=== PATIENT | male | born 1995 | race American Indian/Alaskan Native ===

== ENCOUNTER 2018-05-01 21:02 | Emergency (ER) | payer SELFPAY ==
[2018-05-01 21:43] LABS: Basophils # (Auto) 0.1 K/mm3 (0.0-0.1); Basophils % (Auto) 0.8 % (0.0-1.8); Eosinophils # (Auto) 0.1 K/mm3 (0.0-0.4); Eosinophils % (Auto) 1.8 % (0.0-4.3); Hematocrit 43.2 % (35.5-45.6); Hemoglobin 14.4 gm/dl (11.8-15.2); Lymphocytes # (Auto) 1.9 K/mm3 (1.2-5.4); Mean Corpuscular HGB Conc 33 % (32-34); Mean Corpuscular Volume 93 fl (84-94); Monocytes # (Auto) 0.9 K/mm3 (0.0-0.8); Monocytes % (Auto) 11.5 % (0.0-7.3); Platelet Count 269 K/mm3 (140-440); Red Blood Count 4.66 M/mm3 (3.65-5.03)
[2018-05-01 21:56] LABS: BUN/Creatinine Ratio 14; Blood Urea Nitrogen 10 mg/dL (9-20); Calcium 9.3 mg/dL (8.4-10.2); Hemolysis Index 18
[2018-05-01 22:01] LABS: Amphetamine Screen,Urine PRESUMPTIVE NEGATIVE; Benzodiazepines Screen,Urine PRESUMPTIVE NEGATIVE; Cocaine Screen,Urine PRESUMPTIVE NEGATIVE; Methadone Screen,Urine PRESUMPTIVE NEGATIVE; Opiate Screen,Urine PRESUMPTIVE NEGATIVE
--- NOTE | 2018-05-01 22:10 | Emergency Department Report ---
ED Psych HPI - General Chief Complaint: Psych Stated Complaint: BIPOLAR Time Seen by Provider: 05/01/18 21:37 Source: patient, EMS Mode of arrival: Ambulatory - History of Present Illness Initial Comments: 22-year-old male with a past medical history schizophrenia and bipolar disorder presents to the Hospital complaining of auditory hallucinations and needing his psychiatric medication. Patient is having command hallucinations with homicidal ideation. Denies suicidal ideation. He denies any physical complaints. Patient was recently here on April 24 and was transferred to [facility]. Patient was discharged with a prescription for meds. Patient states he does not have insurance and could not afford medication. He admits to continue marijuana use. Patient also does not have a place to live. - Related Data Home Medications Medication Instructions Recorded Confirmed Last Taken No Known Home Medications [No 04/12/18 04/24/18 Unknown Reported Home Medications] Allergies Allergy/AdvReac Type Severity Reaction Status Date / Time No Known Allergies Allergy Verified 04/11/18 21:03 ED Review of Systems ROS: Stated complaint: BIPOLAR Other details as noted in HPI Comment: All other systems reviewed and negative ED Past Medical Hx - Past Medical History Previous Medical History?: Yes Hx Psychiatric Treatment: Yes (Schizo and bipolar) Additional medical history: Schizophrenia, bi polar - Surgical History Past Surgical History?: No - Social History Smoking Status: Never Smoker Substance Use Type: Marijuana - Medications Home Medications: Home Medications Medication Instructions Recorded Confirmed Last Taken Type No Known Home Medications [No 04/12/18 04/24/18 Unknown History Reported Home Medications] ED Physical Exam - General Limitations: No Limitations - Other Other exam information: General: No limitations, patient is alert in no acute distress Head exam: Atraumatic, normocephalic Eyes exam: Normal appearance, pupils equal reactive to light, extraocular movements intact ENT: Moist mucous membrane, normal oropharynx Neck exam: Normal inspection, full range of motion, no meningismus nontender Respiratory exam: Clear to auscultation bilateral, no wheezes, rales, crackles Cardiovascular: Normal rate and rhythm, normal heart sounds Abdomen: Soft, nondistended, and nontender, with normal bowel sounds, no rebound, or guarding Extremity: Full range of motion normal inspection no deformity Back: Normal Inspection, full range of motion, no tenderness Neurologic: Alert, oriented x3, cranial nerves intact, no motor or sensory deficit Psychiatric: Laughing inappropriately. Cooperative, flirtatious Skin: Warm, dry, intact ED Course Vital Signs 05/01/18 21:21 Temperature 98.4 F Pulse Rate 82 Respiratory 16 Rate Blood Pressure 120/75 O2 Sat by Pulse 100 Oximetry ED Medical Decision Making - Lab Data Result diagrams: 05/01/18 21:30 05/01/18 21:30 Lab Results 05/01/18 05/01/18 05/01/18 Range/Units 21:30 21:30 21:30 WBC 8.1 (4.5-11.0) K/mm3 RBC 4.66 (3.65-5.03) M/mm3 Hgb 14.4 (11.8-15.2) gm/dl Hct 43.2 (35.5-45.6) % MCV 93 (84-94) fl MCH 31 (28-32) pg MCHC 33 (32-34) % RDW 14.0 (13.2-15.2) % Plt Count 269 (140-440) K/mm3 Lymph % (Auto) 23.0 (13.4-35.0) % [place] % (Auto) 11.5 H (0.0-7.3) % Eos % (Auto) 1.8 (0.0-4.3) % Baso % (Auto) 0.8 (0.0-1.8) % Lymph # 1.9 (1.2-5.4) K/mm3 [place] # 0.9 H (0.0-0.8) K/mm3 Eos # 0.1 (0.0-0.4) K/mm3 Baso # 0.1 (0.0-0.1) K/mm3 Seg Neutrophils % 62.9 (40.0-70.0) % Seg Neutrophils # 5.1 (1.8-7.7) K/mm3 Sodium 140 (137-145) mmol/L Potassium 3.6 (3.6-5.0) mmol/L Chloride 103.3 (98-107) mmol/L Carbon Dioxide 24 (22-30) mmol/L Anion Gap 16 mmol/L BUN 10 (9-20) mg/dL Creatinine 0.7 L (0.8-1.5) mg/dL Estimated GFR > 60 ml/min BUN/Creatinine Ratio 14 % Glucose 117 H (75-100) mg/dL Calcium 9.3 (8.4-10.2) mg/dL Urine Bilirubin (Negative) Urine RBC (Auto) (0.0-6.0) /HPF U Epithel Cells (Auto) (0-13.0) /HPF Urine Opiates Screen Urine Methadone Screen Ur Barbiturates Screen Ur Phencyclidine Scrn Ur Amphetamines Screen U Benzodiazepines Scrn Urine Cocaine Screen Plasma/Serum Alcohol < 0.01 (0-0.07) % 05/01/18 05/01/18 Range/Units 21:43 21:43 WBC (4.5-11.0) K/mm3 RBC (3.65-5.03) M/mm3 Hgb (11.8-15.2) gm/dl Hct (35.5-45.6) % MCV (84-94) fl MCH (28-32) pg MCHC (32-34) % RDW (13.2-15.2) % Plt Count (140-440) K/mm3 Lymph % (Auto) (13.4-35.0) % [place] % (Auto) (0.0-7.3) % Eos % (Auto) (0.0-4.3) % Baso % (Auto) (0.0-1.8) % Lymph # (1.2-5.4) K/mm3 [place] # (0.0-0.8) K/mm3 Eos # (0.0-0.4) K/mm3 Baso # (0.0-0.1) K/mm3 Seg Neutrophils % (40.0-70.0) % Seg Neutrophils # (1.8-7.7) K/mm3 Sodium (137-145) mmol/L Potassium (3.6-5.0) mmol/L Chloride (98-107) mmol/L Carbon Dioxide (22-30) mmol/L Anion Gap mmol/L BUN (9-20) mg/dL Creatinine (0.8-1.5) mg/dL Estimated GFR ml/min BUN/Creatinine Ratio % Glucose (75-100) mg/dL Calcium (8.4-10.2) mg/dL Urine Bilirubin Neg (Negative) Urine RBC (Auto) 5.0 (0.0-6.0) /HPF U Epithel Cells (Auto) < 1.0 (0-13.0) /HPF Urine Opiates Screen Presumptive negative Urine Methadone Screen Presumptive negative Ur Barbiturates Screen Presumptive negative Ur Phencyclidine Scrn Presumptive negative Ur Amphetamines Screen Presumptive negative U Benzodiazepines Scrn Presumptive negative Urine Cocaine Screen Presumptive negative Plasma/Serum Alcohol (0-0.07) % - Medical Decision Making 1013 and transfer form signed. Patient received Rocephin and azithromycin for elevated WBC count and a urine for possible urethritis. Patient awaiting acceptance to psychiatric hospital - Differential Diagnosis psychosis, malingering, noncompliance, drug abuse, homeless Critical Care Time: No Critical care attestation.: If time is entered above; I have spent that time in minutes in the direct care of this critically ill patient, excluding procedure time. ED Disposition Clinical Impression: Schizophrenia, Homicidal ideation, Noncompliance with medication regimen, Urethritis, Medical clearance for psychiatric admission, Marijuana use Disposition: [id number]/[id number] PSY HOSP/PSY UNIT Is pt being admited?: No Condition: Stable Referrals: PRIMARY CARE [Primary Care Provider] - 3-5 Days Forms: STI Treatment and Prevention Time of Disposition: 06:14
[2018-05-01 22:12] LABS: Bilirubin,Urine NEG (Negative); Blood,Urine NEG (Negative); Color,Urine Yellow (Yellow); Mucus,Urine 2+ /HPF; Protein,Urine <15 mg/dL mg/dL (Negative)
[2018-05-01 22:20] LABS: Cannabinoid Screen,Urine PRESUMPTIVE POSITIVE
[2018-05-02] MEDS ORDERED: ZITHROMAX PO ONE (06:08)
[2018-05-02] MEDS ORDERED: XYLOCAINE 1% MPF 5 mL INFILTRATI ONE (06:08)
[2018-05-02] MEDS ORDERED: ROCEPHIN IM ONE (06:08)
[2018-05-02] MEDS ORDERED: GEODON IM ONE ×3 (10:28→10:31)
[2018-05-02] MEDS ORDERED: WATER FOR INJ (PF) ONE (10:32)
--- NOTE | 2018-05-02 11:36 | Event Note ---
Date: 05/02/18 Patient became very aggressive towards staff and had to be given Geodon for sedation. I have done a [id number] with this patient and he is now calm and sleeping in the room.
--- NOTE | 2018-05-02 12:08 | Consultation ---
History of Present Illness - Reason for Consult Consult date: 05/02/18 Reason for consult: Mental Health Evaluation Requesting physician: DANG FREIRE - Chief Complaint Chief complaint: "I may shoot somebody" - History of Present Psychiatric Illness 22-year-old AA male who presented to the ER for AH's and asking for medications. The patient is known to me. Today the patient is evasive during the assessment. He would not answer some questions asked of him. He stated that he need his medication because he felt like he may "shot someone, possibly." He would not ID the person or people he may shot. The patient is known to be vague during the interview. He denies SI's, but would not confirm or deny HI's. He denies AVH's. The patient home medications are Risperdal and Depakote. Medications and Allergies Allergies Allergy/AdvReac Type Severity Reaction Status Date / Time No Known Allergies Allergy Verified 04/11/18 21:03 Home Medications Medication Instructions Recorded Confirmed Last Taken Type No Known Home Medications [No 04/12/18 05/02/18 Unknown History Reported Home Medications] Past psychiatric history - Past Medical History Past Medical History: No medical history Past Surgical History: No surgical history - past Psychiatric treatment and history psychiatric treatment history: Several inpatient psy settings. Denies a fam psy hx. - Social History Social history: other (Reside at a detention per the patient) Mental Status Exam - Vital signs Last Vital Signs Temp 98.2 F 05/02/18 01:21 Pulse 89 05/02/18 01:21 Resp 18 05/02/18 01:21 BP 136/88 05/02/18 01:21 Pulse Ox 100 05/01/18 21:21 - Exam Narrative exam: MSE: Appearance: calm Behavior: regular eye contact Speech: regular rate and tone Mood: evasive Affect: congruent to mood Thought Process: circumstantial Thought Content: denies SI and AVH's Motor Activity: sitting up in bed Cognition: A/O x 3 Insight: variable Judgment: variable Results Result Diagrams: 05/01/18 21:30 05/01/18 21:30 Abnormal lab results 05/01/18 05/01/18 05/01/18 Range/Units 21:30 21:30 21:30 [place] % (Auto) (0.0-7.3) % [place] # (0.0-0.8) K/mm3 Creatinine 0.7 L (0.8-1.5) mg/dL Glucose 117 H (75-100) mg/dL Ur Specific [place] (1.003-1.030) Urine WBC (Auto) (0.0-6.0) /HPF Salicylates < 0.3 L (2.8-20.0) mg/dL Acetaminophen < 5.0 L (10.0-30.0) ug/mL 05/01/18 05/01/18 Range/Units 21:30 21:43 [place] % (Auto) 11.5 H (0.0-7.3) % [place] # 0.9 H (0.0-0.8) K/mm3 Creatinine (0.8-1.5) mg/dL Glucose (75-100) mg/dL Ur Specific [place] 1.033 H (1.003-1.030) Urine WBC (Auto) 20.0 H (0.0-6.0) /HPF Salicylates (2.8-20.0) mg/dL Acetaminophen (10.0-30.0) ug/mL All other labs normal. Assessment and Plan Assessment and plan: Impression: Unspecified Mood DO. Cannabis Use DO. Today the patient is evasive during the assessment. The patient would not confirm or deny HI's. Lipase is slightly elevated, so Depakote will not be initiated. DDx: Bipolar DO, R/O Substance Induced Mood DO Recommendation/Plan: Continue 1013 and start home medication Risperdal 1 mg PO HS for mood. Discussed possible metabolic side effects of Risperdal with the patient. Dispo: The patient was referred to inpatient psy services. Staffed with Dr Mily Bhagat.
[2018-05-02 12:58] LABS: Alanine Aminotransferase 10 units/L (7-56)
[2018-05-02] MEDS ORDERED: RisperDAL PO SCH (22:00)
--- NOTE | 2018-05-03 14:01 | Progress Note ---
Subjective - Reason for Consult Consult date: 05/03/18 Reason for consult: Psychiatric Follow-up Evaluation - Chief Complaint Chief complaint: "I feel alright" Patient is a 22-year-old AA male who presented to the ER for AH's and asking for medications. The patient is known to me. Today the patient is anxious and evasive during the assessment. He would not answer some questions asked of him. Patient laughing inappropriate during the assessment. He states " the voices are sending me threats." Patient reports appropriate sleep/appetite. He denies SI's. Patient has to be redirected several times to stay on topic. Mental Status Exam - Vital signs Last Vital Signs Temp 98.3 F 05/03/18 08:00 Pulse 105 H 05/03/18 08:00 Resp 18 05/03/18 08:00 BP 110/73 05/03/18 08:00 Pulse Ox 98 05/03/18 08:00 - Exam Narrative exam: Mental Status Exam Appearance: calm Behavior: regular eye contact; evasive/guarded Speech: regular rate and tone Mood: " I'm alright" Affect: congruent to mood Thought Process: circumstantial Thought Content: denies SI's ; Appears internally preoccupied/paranoid Motor Activity: ambulatory Cognition: A/O x 3 Insight: variable Judgment: variable Assessment and Plan Impression: Unspecified Mood DO. Cannabis Use DO. Today the patient is evasive/guarded and anxious during the assessment. The patient would not confirm or deny HI's. Lipase is slightly elevated, so Depakote will not be initiated. DDx: Bipolar DO, R/O Substance Induced Mood DO Recommendation/Plan: 1. Continue 1013. 2. Continue Risperdal 2 mg PO HS for mood. Discussed possible metabolic side effects of Risperdal with the patient. Disposition: The patient was referred to inpatient psychiatric services. Staffed with Dr. Mily Bhagat.
[2018-05-03] MEDS: RisperDAL PO SCH (21:53)
--- NOTE | 2018-05-04 13:35 | Progress Note ---
Subjective - Reason for Consult Consult date: 05/04/18 Reason for consult: Psychiatric Follow-up Evaluation - Chief Complaint Chief complaint: "I'm feeling great" Patient is a 22-year-old AA male who presented to the ER for AH's and asking for medications. Today the patient is cooperative but anxious during the assessment. Patient was able to answer questions more appropriately but still not appropriate. He reports appropriate sleep and appetite. Patient continues to have poor insight/judgment. He denies SI/HI's, A/VH's, and delusions. Although he denies, patient appears internally preoccupied and paranoid -less. Mental Status Exam - Vital signs Last Vital Signs Temp 98.3 F 05/04/18 09:46 Pulse 68 05/04/18 09:46 Resp 14 05/04/18 09:46 BP 117/77 05/04/18 09:46 Pulse Ox 100 05/04/18 09:46 - Exam Narrative exam: Mental Status Exam Appearance: hospital gown, anxious Behavior: regular eye contact Speech: regular rate and tone Mood: " I'm doing great" Affect: congruent to mood Thought Process: circumstantial, tangential Thought Content: denies SI/HI's; appears internally preoccupied/delusional Motor Activity: ambulatory Cognition: A/O x 3 Insight: variable Judgment: variable Assessment and Plan Impression: Unspecified Mood DO. Cannabis Use DO. Today the patient is cooperative but anxious during the assessment. The patient denies SI/HI's. Behavior and thought process still inappropriate. Lipase is slightly elevated, so Depakote will not be initiated. DDx: Bipolar DO, R/O Substance Induced Mood DO Recommendation/Plan: 1. Continue 1013. 2. On 05-03-18 patient Risperdal was increased to 2mg po QHS. Will continue Risperdal 2 mg PO HS for mood. Discussed possible metabolic side effects of Risperdal with the patient. Disposition: The patient was referred to inpatient psychiatric services. Staffed with Dr. Mily Bhagat.
[2018-05-04] MEDS: RisperDAL PO SCH (22:11)
[2018-05-05 08:18] VITALS: BP 129/67
--- NOTE | 2018-05-05 09:48 | Progress Note ---
Subjective - Reason for Consult Consult date: 05/05/18 Reason for consult: Psychiatry Follow-up - Chief Complaint Chief complaint: "I will stay off the drugs" Patient is a 22-year-old AA male who presented to the ER for AH's and asking for medications. Today the patient is calm and cooperative during the assessment. He stated that he was upset when he came to ER. He apologize for his actions during his stay in the ER. He stated that he reside at [facility] ([facility] He denies SI/HI's and AVH's. He denies any side effects of his medication. Mental Status Exam - Vital signs Last Vital Signs Temp 98.3 F 05/05/18 08:17 Pulse 62 05/05/18 08:17 Resp 16 05/05/18 08:18 BP 129/67 05/05/18 08:17 Pulse Ox 100 05/05/18 08:18 - Exam Narrative exam: MSE: Appearance: calm, cooperative Behavior: regular eye contact Speech: regular rate and tone Mood: "better" Affect: congruent to mood Thought Process: logical Thought Content: denies SI/HI's and AVH's Motor Activity: sitting up in bed Cognition: A/O x 3 Insight: fair Judgment: fair Assessment and Plan Impression: Unspecified Mood DO. Cannabis Use DO. Today the patient is calm and cooperative during the assessment. The patient is no threat to others. DDx: Bipolar DO, R/O Substance Induced Mood DO Recommendation/Plan: Rescind 1013 and continue Risperdal 2 mg PO HS for mood. Discussed possible metabolic side effects of Risperdal with the patient. Discussed the importance to abstain from recreational drug use. Dispo: The patient can follow up with [facility] for outpatient psy services. Will staff with Dr Silva.
--- NOTE | 2018-05-05 14:07 | Emergency Department Report ---
HPI - General Chief Complaint: Psych Time Seen by Provider: 05/01/18 21:37 - HPI HPI: Patient presented in the ED with auditory hallucination and homicide ideation. He tested positive for Marijuana in the ED. Today he is calm and he denies suicide or homicide ideation currently. He was seen earlier today by the psychiatric nurse practitioner Mr Solomon Walls who recommend discharging him on Risperdal and for him to follow up with the [facility] for outpatient psychiatric services. The resources has been given to him by the psychiatric nurse practitioner. On my re-evaluation, patient is calm and he denies homicide or suicide ideation. Plan: Will discharge him per recommendation of the psychiatric nurse practitioner. ED Past Medical Hx - Past Medical History Previous Medical History?: Yes Hx Psychiatric Treatment: Yes (Schizo and bipolar) Additional medical history: Schizophrenia, bi polar - Surgical History Past Surgical History?: No - Social History Smoking Status: Never Smoker Substance Use Type: Marijuana - Medications Home Medications: Home Medications Medication Instructions Recorded Confirmed Last Taken Type Cephalexin [Keflex] 500 mg PO TID #30 capsule 05/05/18 Unknown Rx risperiDONE [RisperDAL] 1 mg PO QHS #30 tablet 05/05/18 Unknown Rx ED Review of Systems ROS: Stated complaint: BIPOLAR Other details as noted in HPI Physical Exam - Physical Exam Vital Signs: Vital Signs 05/01/18 05/02/18 05/02/18 21:21 01:21 19:00 Temperature 98.4 F 98.2 F 99.2 F Pulse Rate 82 89 98 H Respiratory 16 18 18 Rate Blood Pressure 120/75 Blood Pressure 136/88 125/80 [Left] O2 Sat by Pulse 100 99 Oximetry 05/03/18 05/03/18 05/03/18 02:30 08:00 16:00 Temperature 99.4 F 98.3 F 98.5 F Pulse Rate 98 H 105 H 89 Respiratory 18 18 18 Rate Blood Pressure Blood Pressure 106/61 110/73 121/65 [Left] O2 Sat by Pulse 98 98 100 Oximetry 05/03/18 05/04/18 05/04/18 20:37 09:46 13:00 Temperature 98.2 F 98.3 F 98.5 F Pulse Rate 82 68 99 H Respiratory 20 14 14 Rate Blood Pressure Blood Pressure 118/63 117/77 128/58 [Left] O2 Sat by Pulse 96 100 100 Oximetry 05/04/18 05/05/18 05/05/18 19:30 02:19 08:17 Temperature 98.8 F 97.3 F L 98.3 F Pulse Rate 76 62 62 Respiratory 16 18 16 Rate Blood Pressure Blood Pressure 127/80 122/65 129/67 [Left] O2 Sat by Pulse 100 100 100 Oximetry 05/05/18 08:18 Temperature Pulse Rate Respiratory 16 Rate Blood Pressure Blood Pressure [Left] O2 Sat by Pulse 100 Oximetry ED Course Vital Signs 05/01/18 05/02/18 05/02/18 21:21 01:21 19:00 Temperature 98.4 F 98.2 F 99.2 F Pulse Rate 82 89 98 H Respiratory 16 18 18 Rate Blood Pressure 120/75 Blood Pressure 136/88 125/80 [Left] O2 Sat by Pulse 100 99 Oximetry 05/03/18 05/03/18 05/03/18 02:30 08:00 16:00 Temperature 99.4 F 98.3 F 98.5 F Pulse Rate 98 H 105 H 89 Respiratory 18 18 18 Rate Blood Pressure Blood Pressure 106/61 110/73 121/65 [Left] O2 Sat by Pulse 98 98 100 Oximetry 05/03/18 05/04/18 05/04/18 20:37 09:46 13:00 Temperature 98.2 F 98.3 F 98.5 F Pulse Rate 82 68 99 H Respiratory 20 14 14 Rate Blood Pressure Blood Pressure 118/63 117/77 128/58 [Left] O2 Sat by Pulse 96 100 100 Oximetry 05/04/18 05/05/18 05/05/18 19:30 02:19 08:17 Temperature 98.8 F 97.3 F L 98.3 F Pulse Rate 76 62 62 Respiratory 16 18 16 Rate Blood Pressure Blood Pressure 127/80 122/65 129/67 [Left] O2 Sat by Pulse 100 100 100 Oximetry 05/05/18 08:18 Temperature Pulse Rate Respiratory 16 Rate Blood Pressure Blood Pressure [Left] O2 Sat by Pulse 100 Oximetry ED Medical Decision Making - Lab Data Result diagrams: 05/01/18 21:30 05/01/18 21:30 Critical care attestation.: If time is entered above; I have spent that time in minutes in the direct care of this critically ill patient, excluding procedure time. ED Disposition Clinical Impression: Schizophrenia, Homicidal ideation, Noncompliance with medication regimen, Urethritis, Medical clearance for psychiatric admission, Marijuana use, H/O bipolar disorder, Marijuana abuse UTI (urinary tract infection) Qualifiers: Urinary tract infection type: acute cystitis Hematuria presence: without hematuria Qualified Code(s): N30.00 - Acute cystitis without hematuria Disposition: TO HOME OR SELFCARE Is pt being admited?: No Does the pt Need Aspirin: No Condition: Stable Instructions: Urinary Tract Infection in Men (ED) Additional Instructions: Please follow up at the [facility] for outpatient psychiatric services you have been referred to by the psychiatric nurse practitioner who saw you earlier today. Return to the ED if your condition worsens. Prescriptions: risperiDONE [RisperDAL] 1 mg PO QHS #30 tablet Cephalexin [Keflex] 500 mg PO TID #30 capsule Referrals: PRIMARY CARE, [Primary Care Provider] - 3-5 Days Forms: STI Treatment and Prevention Time of Disposition: 14:08
== END 2018-05-05 15:29 | disposition home or self-care (01) ==
LOC: ED 21:02 → EEVIPCON 21:02 → ED 05-05 15:29
DX: F20.9 Schizophrenia, unspecified (principal); N34.2 Other urethritis; F12.10 Cannabis abuse, uncomplicated; F39 Unspecified mood [affective] disorder; N30.00 Acute cystitis without hematuria
CPT/HCPCS: 36415; 80048; 80164; 80307; 81001; 82150; 83690; 84075; 84450; 84460; 85025; 96372; 99284; G0480; J0696; J3486; 80320

== ENCOUNTER 2018-07-10 22:26 | Emergency (ER) | payer OTHER ==
--- NOTE | 2018-07-10 22:36 | Emergency Department Report ---
Chief Complaint: Psych Stated Complaint: HEARING VOICES/ABDOMINAL PAIN - HPI History of Present Illness: pt states that he is hearing voices is not taking his medication denies SI/HI pt says he is supposed to be taking risperdal, depakote MSE screening note: Focused history and physical exam performed. Due to findings the following was ordered:psych protocol ED Disposition for MSE Condition: Stable
[2018-07-10 23:13] LABS: Basophils % (Auto) 0.5 % (0.0-1.8); Eosinophils # (Auto) 0.1 K/mm3 (0.0-0.4); Eosinophils % (Auto) 1.9 % (0.0-4.3); Hematocrit 40.3 % (35.5-45.6); Hemoglobin 13.7 gm/dl (11.8-15.2); Lymphocytes # (Auto) 1.5 K/mm3 (1.2-5.4); Mean Corpuscular HGB Conc 34 % (32-34); Mean Corpuscular Volume 95 fl (84-94); Monocytes # (Auto) 0.7 K/mm3 (0.0-0.8); Monocytes % (Auto) 14.3 % (0.0-7.3); Platelet Count 202 K/mm3 (140-440); Red Blood Count 4.22 M/mm3 (3.65-5.03); Red Cell Distribution Width 14.5 % (13.2-15.2)
[2018-07-10 23:32] LABS: Alanine Aminotransferase 12 units/L (7-56); BUN/Creatinine Ratio 13; Blood Urea Nitrogen 10 mg/dL (9-20); Hemolysis Index 15
[2018-07-11 00:19] LABS: Bilirubin,Urine NEG (Negative); Blood,Urine NEG (Negative); Color,Urine Yellow (Yellow); Mucus,Urine FEW /HPF; Protein,Urine <15 mg/dL mg/dL (Negative); Urobilinogen,Urine < 2.0 mg/dL (<2.0)
[2018-07-11 01:06] LABS: Amphetamine Screen,Urine PRESUMPTIVE NEGATIVE; Benzodiazepines Screen,Urine PRESUMPTIVE NEGATIVE; Cocaine Screen,Urine PRESUMPTIVE NEGATIVE; Methadone Screen,Urine PRESUMPTIVE NEGATIVE; Opiate Screen,Urine PRESUMPTIVE NEGATIVE
[2018-07-11 01:31] LABS: Cannabinoid Screen,Urine PRESUMPTIVE POSITIVE
--- NOTE | 2018-07-11 06:16 | Emergency Department Report ---
HPI - General Chief Complaint: Psych Time Seen by Provider: 07/10/18 22:55 - HPI HPI: 22-year-old male with a past medical history schizophrenia and bipolar disorder presents to the Hospital complaining of auditory hallucinations and needing his psychiatric medication. Patient states she does comprehend what the voices are telling him to do. He also states that his homeless and hungry. Denies suicidal ideation. He denies any physical complaints. ED Past Medical Hx - Past Medical History Previous Medical History?: Yes Hx Psychiatric Treatment: Yes (Schizo and bipolar) Additional medical history: Schizophrenia, bi polar - Surgical History Past Surgical History?: No - Social History Smoking Status: Never Smoker - Medications Home Medications: Home Medications Medication Instructions Recorded Confirmed Last Taken Type risperiDONE [RisperDAL] 1 mg PO QHS #30 tablet 05/05/18 05/07/18 Unknown Rx ED Review of Systems ROS: Stated complaint: HEARING VOICES/ABDOMINAL PAIN Other details as noted in HPI Comment: All other systems reviewed and negative Constitutional: denies: chills, fever Eyes: denies: eye pain, eye discharge, vision change ENT: denies: ear pain, throat pain Respiratory: denies: cough, shortness of breath, wheezing Cardiovascular: denies: chest pain, palpitations Endocrine: no symptoms reported Gastrointestinal: denies: abdominal pain, nausea, diarrhea Genitourinary: denies: urgency, dysuria Musculoskeletal: denies: back pain, joint swelling, arthralgia Skin: denies: rash, lesions Neurological: denies: headache, weakness, paresthesias Psychiatric: anxiety, depression, auditory hallucinations, visual loya ucinations. denies: homicidal thoughts, suicidal thoughts Hematological/Lymphatic: denies: easy bleeding, easy bruising Physical Exam - Physical Exam Vital Signs: Vital Signs 07/10/18 07/11/18 07/11/18 23:03 00:28 04:00 Temperature 97.6 F 97.8 F Pulse Rate 76 79 Respiratory 20 20 20 Rate Blood Pressure 109/74 110/67 [Left] O2 Sat by Pulse 100 97 98 Oximetry Physical Exam: - General Limitations: No Limitations General appearance: alert, in no apparent distress - Head Head exam: Present: atraumatic, normocephalic - Eye Eye exam: Present: normal appearance - ENT ENT exam: Present: mucous membranes moist - Neck Neck exam: Present: normal inspection - Respiratory Respiratory exam: Present: normal lung sounds bilaterally. Absent: respiratory distress - Cardiovascular Cardiovascular Exam: Present: regular rate, normal rhythm. Absent: systolic murmur, diastolic murmur, rubs, gallop - GI/Abdominal GI/Abdominal exam: Present: soft, normal bowel sounds - Extremities Exam Extremities exam: Present: normal inspection - Back Exam Back exam: Present: normal inspection - Neurological Exam Neurological exam: Present: alert, oriented X3 - Psychiatric Psychiatric exam: Present: normal affect, normal mood - Skin Skin exam: Present: warm, dry, intact, normal color. Absent: rash ED Course Vital Signs 07/10/18 07/11/18 07/11/18 23:03 00:28 04:00 Temperature 97.6 F 97.8 F Pulse Rate 76 79 Respiratory 20 20 20 Rate Blood Pressure 109/74 110/67 [Left] O2 Sat by Pulse 100 97 98 Oximetry - Reevaluation(s) Reevaluation #1: 07/11/18 06:25 While being evaluated by the mental health visual merchandising specialist, patient states he was suicidal at that time, he was placed on 1013. Medically clear for psych eval. ED Medical Decision Making - Lab Data Result diagrams: 07/10/18 22:53 07/10/18 22:53 Critical care attestation.: If time is entered above; I have spent that time in minutes in the direct care of this critically ill patient, excluding procedure time. ED Disposition Clinical Impression: Suicidal ideation, Medical clearance for psychiatric admission Schizophrenia Qualifiers: Schizophrenia type: other Qualified Code(s): F20.89 - Other schizophrenia; F20.8 - Other schizophrenia Disposition: DC/TX-65 PSY HOSP/PSY UNIT Is pt being admited?: No Does the pt Need Aspirin: No Condition: Stable Referrals: PRIMARY CAREMD [Primary Care Provider] - 3-5 Days
--- NOTE | 2018-07-11 11:00 | Consultation ---
History of Present Illness - Reason for Consult Consult date: 07/11/18 Reason for consult: Mental Health Evaluation Requesting physician: JUSTINE JOVEL - Chief Complaint Chief complaint: "Come back" - History of Present Psychiatric Illness 22-year-old AA male who presented to the ER for AH's. This patient is known to me. Today the patient refused to cooperate during the assessment. No gestures of SI/HI's. Medications and Allergies Allergies Allergy/AdvReac Type Severity Reaction Status Date / Time No Known Allergies Allergy Verified 04/11/18 21:03 Home Medications Medication Instructions Recorded Confirmed Last Taken Type risperiDONE [RisperDAL] 1 mg PO QHS #30 tablet 05/05/18 05/07/18 Unknown Rx Past psychiatric history - Past Medical History Past Medical History: other (Unable to obtain ) Past Surgical History: Other (Unable to obtain) - past Psychiatric treatment and history psychiatric treatment history: Several inpatient psy settings in the past. Unable to obtain a [facility] psy hx. - Social History Social history: lives with family Mental Status Exam - Vital signs Last Vital Signs Temp 97.9 F 07/11/18 08:00 Pulse 61 07/11/18 08:00 Resp 14 07/11/18 08:00 BP 122/76 07/11/18 08:00 Pulse Ox 100 07/11/18 08:00 - Exam Narrative exam: Unable to complete a MSE because the patient refuse to cooperate. Results Result Diagrams: 07/10/18 22:53 07/10/18 22:53 Abnormal lab results 07/10/18 07/10/18 07/10/18 Range/Units 22:53 22:53 22:53 MCV 95 H (84-94) fl [place] % (Auto) 14.3 H (0.0-7.3) % Chloride 107.2 H (98-107) mmol/L Total Protein 6.0 L (6.3-8.2) g/dL Salicylates < 0.3 L (2.8-20.0) mg/dL Acetaminophen (10.0-30.0) ug/mL 07/10/18 Range/Units 22:53 MCV (84-94) fl [place] % (Auto) (0.0-7.3) % Chloride (98-107) mmol/L Total Protein (6.3-8.2) g/dL Salicylates (2.8-20.0) mg/dL Acetaminophen < 5.0 L (10.0-30.0) ug/mL All other labs normal. Assessment and Plan Assessment and plan: Impression: The patient refused to cooperate during the assessment. The patient was positive for marijuana. Recommendation/Plan: Attempt to reassess the patient in 24 hours. Dispo: The patient was referred to inpatient psy services. Will staff with Dr Mily Bhagat.
[2018-07-11] MEDS ORDERED: GEODON IM ONE (21:46)
--- NOTE | 2018-07-12 10:07 | Progress Note ---
Subjective - Reason for Consult Consult date: 07/12/18 Reason for consult: Psychiatry Folow-up - Chief Complaint Chief complaint: "I'm suicidal" 22-year-old AA male who presented to the ER for AH's. This patient is known to me. Today the patient still refuse to talk during the assessment. He did state that he was suicidal and would not answer any question reference his statement. No gestures of HI's. Mental Status Exam - Vital signs Last Vital Signs Temp 97.3 F L 07/12/18 07:30 Pulse 66 07/12/18 07:30 Resp 18 07/12/18 07:30 BP 117/74 07/12/18 07:30 Pulse Ox 100 07/12/18 02:25 - Exam Narrative exam: Unable to complete a MSE because the patient refuse to cooperate. Assessment and Plan Impression: The patient refused to cooperate during the assessment. The patient was positive for marijuana. Recommendation/Plan: Continue 1013. Dispo: The patient was accepted at [facility] pending transport time. Will staff with Dr Russell Bhagat.
[2018-07-13 10:02] VITALS: BP 113/83
== END 2018-07-13 11:30 ==
LOC: EEVIPCON 22:26 → ED 22:26
DX: F20.9 Schizophrenia, unspecified (principal); F31.9 Bipolar disorder, unspecified; Z59.0 Homelessness; F41.9 Anxiety disorder, unspecified
CPT/HCPCS: 36415; 80053; 80178; 80307; 81001; 85025; 96372; 99285; G0480; J3486; 80320

== ENCOUNTER 2018-07-25 01:25 | Emergency (ER) | payer OTHER ==
[2018-07-25 01:40] VITALS: BP 111/65
[2018-07-25 04:10] LABS: Hematocrit 42.3 % (35.5-45.6); Hemoglobin 14.2 gm/dl (11.8-15.2); Mean Corpuscular HGB Conc 34 % (32-34); Mean Corpuscular Volume 94 fl (84-94); Platelet Count 349 K/mm3 (140-440); Red Blood Count 4.49 M/mm3 (3.65-5.03); Red Cell Distribution Width 14.1 % (13.2-15.2)
[2018-07-25 04:11] LABS: Basophils % (Auto) 0.5 % (0.0-1.8); Eosinophils # (Auto) 0.1 K/mm3 (0.0-0.4); Eosinophils % (Auto) 1.4 % (0.0-4.3); Lymphocytes # (Auto) 2.2 K/mm3 (1.2-5.4); Monocytes # (Auto) 0.7 K/mm3 (0.0-0.8); Monocytes % (Auto) 10.7 % (0.0-7.3)
[2018-07-25 05:48] LABS: Alanine Aminotransferase 15 units/L (7-56); Albumin 4.8 g/dL (3.9-5); BUN/Creatinine Ratio 29; Blood Urea Nitrogen 20 mg/dL (9-20); Hemolysis Index 4
== END 2018-07-25 11:37 | disposition left against medical advice (07) ==
LOC: ED 01:25
DX: R10.9 Unspecified abdominal pain (principal); Z53.21 Procedure and treatment not carried out due to patient leaving prior to being seen by health care provider
CPT/HCPCS: 36415; 80053; 85025; G0480; 80320

== ENCOUNTER 2019-08-25 01:41 | Emergency (ER) | payer SELFPAY ==
[2019-08-25 02:15] LABS: Basophils % (Auto) 0.6 % (0.0-1.8); Eosinophils # (Auto) 0.2 K/mm3 (0.0-0.4); Hematocrit 45.7 % (35.5-45.6); Hemoglobin 15.1 gm/dl (11.8-15.2); Lymphocytes # (Auto) 2.1 K/mm3 (1.2-5.4); Mean Corpuscular HGB Conc 33 % (32-34); Mean Corpuscular Volume 97 fl (84-94); Monocytes # (Auto) 0.6 K/mm3 (0.0-0.8); Monocytes % (Auto) 9.4 % (0.0-7.3); Platelet Count 293 K/mm3 (140-440); Red Blood Count 4.73 M/mm3 (3.65-5.03); Red Cell Distribution Width 13.7 % (13.2-15.2)
[2019-08-25 02:36] LABS: BUN/Creatinine Ratio 11; Blood Urea Nitrogen 9 mg/dL (9-20); Calcium 9.8 mg/dL (8.4-10.2); Hemolysis Index 13
[2019-08-25 02:43] LABS: Bacteria,Urine 1+ /HPF (Negative); Bilirubin,Urine NEG (Negative); Blood,Urine NEG (Negative); Color,Urine Yellow (Yellow); Mucus,Urine 1+ /HPF; Protein,Urine <15 mg/dL mg/dL (Negative)
[2019-08-25 02:50] LABS: Amphetamine Screen,Urine PRESUMPTIVE NEGATIVE; Benzodiazepines Screen,Urine PRESUMPTIVE NEGATIVE; Cocaine Screen,Urine PRESUMPTIVE NEGATIVE; Methadone Screen,Urine PRESUMPTIVE NEGATIVE; Opiate Screen,Urine PRESUMPTIVE NEGATIVE
--- NOTE | 2019-08-25 03:09 | Emergency Department Report ---
HPI - HPI HPI: 23-year-old -[place] male presents to the emergency department with a complaint of suicidal ideations. Overall this is been going on for the past month. He does not have any particular plan as to how he would harm himself. He is unwilling to share the reasons for why he is feeling suicidal. He has a past medical history of schizophrenia and bipolar disorder for which he takes Depakote and Risperdal and says he is compliant. He denies any current alcohol or illicit drug use. <TATIANNA ROTHMAN - Last Filed: 08/25/19 04:39> <DALE DOMINGUEZ - Last Filed: 08/25/19 13:31> - General Chief Complaint: Psych Time Seen by Provider: 08/25/19 02:31 ED Past Medical Hx - Past Medical History Previous Medical History?: Yes Hx Psychiatric Treatment: Yes (Schizo and bipolar) Additional medical history: Schizophrenia, bi polar. "heart probs" - Surgical History Past Surgical History?: No - Social History Smoking Status: Never Smoker <TATIANNA ROTHMAN - Last Filed: 08/25/19 04:39> <DALE DOMINGUEZ - Last Filed: 08/25/19 13:31> - Medications Home Medications: Home Medications Medication Instructions Recorded Confirmed Last Taken Type ARIPiprazole [Abilify TAB] 5 mg PO QHS #30 tablet 07/19/18 08/25/19 Unknown Rx FLUoxetine [PROzac] 10 mg PO QAM #30 tablet 07/19/18 08/25/19 Unknown Rx Divalproex ER [DepaKOTE ER] 500 mg PO BID 08/25/19 08/25/19 Unknown History risperiDONE [RisperDAL] 0.5 mg PO DAILY 08/25/19 08/25/19 Unknown History ED Review of Systems ROS: Stated complaint: MH EVAL/SI W/O PLAN Other details as noted in HPI Comment: All other systems reviewed and negative Constitutional: denies: chills, fever Respiratory: denies: cough, shortness of breath Cardiovascular: denies: chest pain Gastrointestinal: denies: abdominal pain, vomiting Musculoskeletal: denies: back pain Neurological: denies: headache, weakness Psychiatric: suicidal thoughts. denies: homicidal thoughts <TATIANNA ROTHMAN - Last Filed: 08/25/19 04:39> ROS: Stated complaint: MH EVAL/SI W/O PLAN Other details as noted in HPI <DALE DOMINGUEZ - Last Filed: 08/25/19 13:31> Physical Exam - Physical Exam Vital Signs: Vital Signs 08/25/19 08/25/19 01:42 02:20 Temperature 98.0 F 98.1 F Pulse Rate 68 52 L Respiratory 16 16 Rate Blood Pressure 117/75 Blood Pressure 111/63 [Right] O2 Sat by Pulse 100 99 Oximetry Physical Exam: GENERAL: The patient is well-developed well-nourished. HENT: Normocephalic. Atraumatic. Patient has moist mucous membranes. EYES: Extraocular motions are intact. NECK: Supple. Trachea is midline. CHEST/LUNGS: Clear to auscultation. There is no respiratory distress noted. HEART/CARDIOVASCULAR: Regular. There is no tachycardia. ABDOMEN: Abdomen is soft, nontender. Patient has normal bowel sounds. SKIN: Skin is warm and dry. NEURO: The patient is awake, alert, and cooperative. The patient has no focal neurologic deficits. Normal speech. MUSCULOSKELETAL: There is no tenderness or deformity. There is no evidence of acute injury. <TATIANNA ROTHMAN S - Last Filed: 08/25/19 04:39> - Physical Exam Vital Signs: Vital Signs 08/25/19 08/25/19 08/25/19 01:42 02:20 07:48 Temperature 98.0 F 98.1 F 97.6 F Pulse Rate 68 52 L 61 Respiratory 16 16 18 Rate Blood Pressure 117/75 Blood Pressure 111/63 113/65 [Right] O2 Sat by Pulse 100 99 100 Oximetry <DALE DOMINGUEZ - Last Filed: 08/25/19 13:31> ED Course Vital Signs 08/25/19 08/25/19 01:42 02:20 Temperature 98.0 F 98.1 F Pulse Rate 68 52 L Respiratory 16 16 Rate Blood Pressure 117/75 Blood Pressure 111/63 [Right] O2 Sat by Pulse 100 99 Oximetry <TATIANNA ROTHMAN S - Last Filed: 08/25/19 04:39> Vital Signs 08/25/19 08/25/19 08/25/19 01:42 02:20 07:48 Temperature 98.0 F 98.1 F 97.6 F Pulse Rate 68 52 L 61 Respiratory 16 16 18 Rate Blood Pressure 117/75 Blood Pressure 111/63 113/65 [Right] O2 Sat by Pulse 100 99 100 Oximetry - Reevaluation(s) Reevaluation #1: 08/25/19 13:30 Patient was seen by mental health assessors. Their note is as follows PARVIZ MCPHERSON Male : 1995 [facility]# [id number] 08/25/19 12:10 - Revolving Inventory Clerk's [facility]: [id number] : 1995 Patient Age: 23 MENTAL HEALTH ASSESSMENT COMPLETED: Pt is a 23 year old AA male who presents to the ED via EMS. Pt reports that he is currently homeless and usually resides at [facility] in [facility]; "I can't go back for 2 months; I need somewhere to go." Pt denies substance use; however, pt tox is positive for marijuana. Pt reports no current suicidal ideation; the pt reports that he was "Thinking I wanted to harm myself when I got kicked out." Pt reports that he is no longer having those thoughts, pt has no plans or intent. "I'm not going to do anything; I need another snf." Pt reports he was on suicide watch while in alf "a couple of months ago," due to pt attempting to hang himself while in alf. Pt reports that he has had no attempts or plans for suicide since being released from alf. Pt reports he has brothers and sisters as a support system. Pt reports that he has no where to live after being removed from [facility]/snf yesterday. Pt denies any homicidal ideation, plans or intent. Pt is experiencing no symptoms of thought disorder/psychosis. Pt reports no AH/VH; "I wasn't feeling like myself." Pt has fair concentration/memory. Pt has calm mood with flat affect. Pt is able to express his needs (housing and outpatient supports) and advocate for himself. Pt carries a diagnosis of "Bipolar and Schizophrenia." Pt reports that he has no current therapist or psychiatrist. Last time that the pt received mental health treatment (Risperdol and Depakote), "was when I was locked up." Pt was released about a month and half ago; incarcerated for failure to appear. Pt reports, "I was going to all the [facility], [facility], [facility]." Pt is requesting outpatient providers. RECOMMENDATION: Rescind 1013, pt does not meet criteria for inpatient treatment at this time; pt denies SI, HI and is not displaying signs of psychosis. Pt provided with snf resources and outpatient therapy referrals. Charley Soriano LPC Initialized on 08/25/19 12:10 - END OF NOTE <DALE DOMINGUEZ - Last Filed: 08/25/19 13:31> ED Medical Decision Making - Lab Data Result diagrams: 08/25/19 02:00 08/25/19 02:00 - Medical Decision Making This patient presents to the emergency department with a complaint of suicidal ideations without a plan. For that reason the patient has been made a 1013. Labs have been unremarkable including CBC, metabolic panel, blood alcohol level, urine drug screen, except for positive marijuana. His vital signs have been unremarkable. The patient will be seen by the psychiatric team in the morning. He appears medically cleared for psychiatric placement. <TATIANNA ROTHMAN - Last Filed: 08/25/19 04:39> - Lab Data Result diagrams: 08/25/19 02:00 08/25/19 02:00 - Medical Decision Making Patient stated that he was suicidal for secondary gain. Patient states he is actually here for housing concerns. Patient is been medically cleared and will be discharged <DALE DOMINGUEZ - Last Filed: 08/25/19 13:31> Critical Care Time: No Critical care attestation.: If time is entered above; I have spent that time in minutes in the direct care of this critically ill patient, excluding procedure time. <TATIANNA ROTHMAN - Last Filed: 08/25/19 04:39> Critical care attestation.: If time is entered above; I have spent that time in minutes in the direct care of this critically ill patient, excluding procedure time. <DALE DOMINGUEZ - Last Filed: 08/25/19 13:31> ED Disposition Is pt being admited?: No Time of Disposition: 04:41 <TATIANNA ROTHMAN - Last Filed: 08/25/19 04:39> Is pt being admited?: No Does the pt Need Aspirin: No <DALE DOMINGUEZ - Last Filed: 08/25/19 13:31> Clinical Impression: Schizophrenia, Homeless Disposition: DC-01 TO HOME OR SELFCARE Condition: Stable
[2019-08-25 03:16] LABS: Cannabinoid Screen,Urine PRESUMPTIVE POSITIVE
[2019-08-25 07:50] VITALS: BP 113/65
== END 2019-08-25 14:00 | disposition home or self-care (01) ==
LOC: ED 01:41
DX: F20.9 Schizophrenia, unspecified (principal); Z79.899 Other long term (current) drug therapy
CPT/HCPCS: 36415; 80048; 80307; 80320; 81001; 85025; G0480

== ENCOUNTER 2020-02-11 20:55 | Emergency (ER) | payer SELFPAY ==
[2020-02-11 22:09] VITALS: BP 135/59
[2020-02-11 23:44] LABS: Basophils % (Auto) 0.4 % (0.0-1.8); Eosinophils # (Auto) 0.1 K/mm3 (0.0-0.4); Hematocrit 44.5 % (35.5-45.6); Lymphocytes # (Auto) 2.3 K/mm3 (1.2-5.4); Lymphocytes % (Auto) 35.4 % (13.4-35.0); Mean Corpuscular HGB Conc 34 % (32-34); Mean Corpuscular Volume 96 fl (84-94); Monocytes # (Auto) 0.6 K/mm3 (0.0-0.8); Monocytes % (Auto) 9.5 % (0.0-7.3); Platelet Count 339 K/mm3 (140-440); Red Blood Count 4.65 M/mm3 (3.65-5.03); Red Cell Distribution Width 13.7 % (13.2-15.2)
[2020-02-12 00:02] LABS: BUN/Creatinine Ratio 11; Blood Urea Nitrogen 10 mg/dL (9-20); Calcium 9.7 mg/dL (8.4-10.2); Hemolysis Index 10
== END 2020-02-11 23:30 | disposition left against medical advice (07) ==
LOC: ED 20:55 → EEVIPCON 20:55 → ED 23:30
DX: Z53.21 Procedure and treatment not carried out due to patient leaving prior to being seen by health care provider (principal)
CPT/HCPCS: 36415; 80048; 80320; 85025; G0480

== ENCOUNTER 2020-02-14 02:08 | Emergency (ER) | payer SELFPAY ==
[2020-02-14 02:48] VITALS: BP 119/70
[2020-02-14 03:58] LABS: Basophils % (Auto) 0.4 % (0.0-1.8); Eosinophils % (Auto) 0.6 % (0.0-4.3); Hemoglobin 15.6 gm/dl (11.8-15.2); Lymphocytes # (Auto) 1.7 K/mm3 (1.2-5.4); Lymphocytes % (Auto) 24.7 % (13.4-35.0); Mean Corpuscular HGB Conc 35 % (32-34); Mean Corpuscular Volume 96 fl (84-94); Monocytes # (Auto) 0.8 K/mm3 (0.0-0.8); Monocytes % (Auto) 11.3 % (0.0-7.3); Platelet Count 300 K/mm3 (140-440); Red Blood Count 4.71 M/mm3 (3.65-5.03); Red Cell Distribution Width 13.5 % (13.2-15.2)
[2020-02-14 04:17] LABS: BUN/Creatinine Ratio 15; Blood Urea Nitrogen 15 mg/dL (9-20); Calcium 10.4 mg/dL (8.4-10.2); Hemolysis Index 32
== END 2020-02-14 03:08 | disposition left against medical advice (07) ==
LOC: ED 02:08
DX: R10.9 Unspecified abdominal pain (principal); Z53.21 Procedure and treatment not carried out due to patient leaving prior to being seen by health care provider
CPT/HCPCS: 36415; 80048; 80320; 85025; G0480

== ENCOUNTER 2020-02-14 15:26 | Emergency (ER) | payer SELFPAY ==
[2020-02-14] MEDS ORDERED: ZIPRASIDONE MESYLATE 20 MG VIAL IM ONE (20:06)
--- NOTE | 2020-02-14 20:07 | Emergency Department Report ---
<DALE DOMINGUEZ - Last Filed: 02/15/20 12:25> ED Psych HPI - General Chief Complaint: Psych Stated Complaint: PSYCH Time Seen by Provider: 02/14/20 20:04 - Related Data Home Medications Medication Instructions Recorded Confirmed Last Taken Divalproex ER [DepaKOTE ER] 500 mg PO BID 08/25/19 02/15/20 Unknown risperiDONE [RisperDAL] 0.5 mg PO DAILY 08/25/19 02/15/20 Unknown Previous Rx's Medication Instructions Recorded Last Taken Type ARIPiprazole [Abilify TAB] 5 mg PO QHS #30 tablet 07/19/18 Unknown Rx FLUoxetine [PROzac] 10 mg PO QAM #30 tablet 07/19/[address] [Jessica ALVARADO] 250 mg PO BID #60 tablet 02/15/20 Unknown Rx risperiDONE [RisperDAL] 0.5 mg PO BID #60 tablet 02/15/20 Unknown Rx Allergies Allergy/AdvReac Type Severity Reaction Status Date / Time No Known Allergies Allergy Verified 04/11/18 21:03 ED Past Medical Hx - Medications Home Medications: Home Medications Medication Instructions Recorded Confirmed Last Taken Type ARIPiprazole [Abilify TAB] 5 mg PO QHS #30 tablet 07/19/18 02/15/20 Unknown Rx FLUoxetine [PROzac] 10 mg PO QAM #30 tablet 07/19/18 02/15/20 Unknown Rx Divalproex ER [DepaKOTE ER] 500 mg PO BID 08/25/19 02/15/20 Unknown History risperiDONE [RisperDAL] 0.5 mg PO DAILY 08/25/19 02/15/[address] [Jessica DR] 250 mg PO BID #60 tablet 02/15/20 Unknown Rx risperiDONE [RisperDAL] 0.5 mg PO BID #60 tablet 02/15/20 Unknown Rx ED Course - Reevaluation(s) Reevaluation #4: 02/15/20 12:26 Patient Name: PARVIZ MCPHERSON Date of : 89 Patient Status: Emergency Emergency Provider: FLOYD MICHAUD III Date: 02/15/20 10:58 Initialization Date: 02/15/20 10:58 History of Present Illness - Reason for Consult Consult date: 02/15/20 Reason for consult: requesting to speak with psysch - History of Present Psychiatric Illness The patient's medical record was reviewed and the patient's progress was discussed with the nursing staff. I attempted to interview the patient today. He was lying in bed with his eyes cl osed. He is rude, verbally aggressive and uncooperative. When calling the patient's name, he replies "I'm sleeping and don't feel like talking." When informing the patient of who I was, and stating to him that I needed information so I would know how to treat him, he replies, "I can't get rest around here, and I keep asking for my own room." He then says "I told yall I need is my meds and I'm good." When asking the patient about hallucinations, he says "that was yesterday." When asking the patient was he SI/HI, he replies, "naw, but you need to leave me alone." He then says, "I don't want your help right now. Please leave. I'm trying to get me some sleep." I went back and spoke to the patient later and advised him that he would be going home and that I had written his scripts. He says, "that's good and I have nothing else to talk to you about." PAST PSYCHIATRIC HISTORY Unable to obtain PAST MEDICAL HISTORY: None reported Family Psychiatric History: None reported or documented SOCIAL HISTORY Unable to obtain REVIEW OF SYSTEMS Unable to obtain MENTAL STATUS EXAMINATION Unable to assess Assessment Bipolar Disorder Plan D/c 1013 Depakote 250mg po BID Risperidone 0.5mg po BID Sitter: Defer to primary Medical: Per primary Disposition: Do not Recommend acute inpatient treatment. The metalworking specialist is to implement safety plan. The patient is to follow up with outpatient psych in 7 to 14 days upon discharge The metalworking specialist is to give the patient resources for outpatient psych services and cognitive behavior therapy Will sign off. Thank you for this consult. ED Medical Decision Making - Lab Data Result diagrams: 02/14/20 20:23 02/14/20 20:23 ED Disposition Clinical Impression: Acute psychosis, Homicidal ideations, Hallucination, Schizophrenia Disposition: DC-01 TO HOME OR SELFCARE Is pt being admited?: No Does the pt Need Aspirin: No Condition: Stable Additional Instructions: Outpatient COMMUNITY Behavioral Health Resources: [facility] [place] ([facility]) [address] [place] [address] / [phone] Wednesday thru Wednesday - 8am - 5pm [facility] Address: [address] [place] [address] Wednesday thru Wednesday- 7am-2pm [facility] Address: [address] [place] [address] Wednesday thru Wednesday: 8:30AM-5PM CRISIS RESOURCES [place] Crisis Line: Suicide Prevention Line: Crisis Text Line: Text START to [phone] Emergency: 911 Prescriptions: Divalproex Dr [DepaKOTE DR] 250 mg PO BID #60 tablet risperiDONE [RisperDAL] 0.5 mg PO BID #60 tablet Referrals: PRIMARY CARE, [Primary Care Provider] - 2-3 Days <FLOYD MICHAUD III - Last Filed: 02/16/20 21:46> ED Psych HPI - General Source: patient Mode of arrival: Ambulatory Limitations: No Limitations - History of Present Illness Initial Comments: Patient is a 24-year-old male that presents emergency room with complaints of homicidal ideations and visual hallucinations. Patient states he wants a mental evaluation. Patient states that he is off his medications for 2 weeks. Patient states that his homicidal ideations are in general I do not have a specific plan. Patient states he wants to kill everybody. Patient states he is seeing things. Patient states he just needs his meds and he will be good to go. Patient denies suicidal ideation. Patient denies recent travel. Patient denies recent international travel. Patient denies exposure to the novel coronavirus. Patient denies sick contacts. Patient denies fever and chills. Patient denies cough. Patient denies oneida rrhea. Patient denies coming in contact with anybody with symptoms of the novel coronavirus. Complaint: other -: Sudden Associated Psychiatric Symptoms: homicidal ideation, racing thoughts, visual hallucinations History of same: Yes Quality: constant Improves With: medication, therapy Worsens With: other Context: not taking psychiatric Associated Symptoms: denies: confusion, headache, shortness of breath, nausea, vomiting, syncope, insomnia ED Review of Systems ROS: Stated complaint: PSYCH Other details as noted in HPI Constitutional: denies: chills, fever Eyes: denies: eye pain, eye discharge, vision change ENT: denies: ear pain, throat pain Respiratory: denies: cough, shortness of breath, wheezing Cardiovascular: denies: chest pain, palpitations Endocrine: no symptoms reported Gastrointestinal: denies: abdominal pain, nausea, diarrhea Genitourinary: denies: urgency, dysuria Musculoskeletal: denies: back pain, joint swelling, arthralgia Skin: denies: rash, lesions Neurological: denies: headache, weakness, paresthesias Psychiatric: denies: anxiety, depression Hematological/Lymphatic: denies: easy bleeding, easy bruising ED Past Medical Hx - Past Medical History Previous Medical History?: Yes Hx Psychiatric Treatment: Yes (Schizo and bipolar) Additional medical history: Schizophrenia, bi polar. "heart probs" - Surgical History Past Surgical History?: No - Family History Family history: no significant - Social History Smoking Status: Never Smoker Substance Use Type: None ED Physical Exam - General Limitations: No Limitations General appearance: alert, in no apparent distress - Head Head exam: Present: atraumatic, normocephalic - Eye Eye exam: Present: normal appearance - ENT ENT exam: Present: mucous membranes moist - Neck Neck exam: Present: normal inspection - Respiratory Respiratory exam: Present: normal lung sounds bilaterally. Absent: respiratory distress - Cardiovascular Cardiovascular Exam: Present: regular rate, normal rhythm. Absent: systolic murmur, diastolic murmur, rubs, gallop - GI/Abdominal GI/Abdominal exam: Present: soft, normal bowel sounds - Rectal Rectal exam: Present: deferred - Extremities Exam Extremities exam: Present: normal inspection - Back Exam Back exam: Present: normal inspection - Neurological Exam Neurological exam: Present: alert, oriented X3 - Psychiatric Psychiatric exam: Present: depressed, flat affect, homicidal ideation - Skin Skin exam: Present: warm, dry, intact, normal color. Absent: rash ED Course Vital Signs 02/14/20 02/14/20 02/15/20 15:48 20:15 02:57 Temperature 98.1 F 98.5 F 97.5 F L Pulse Rate 77 84 47 L Respiratory 18 18 18 Rate Blood Pressure 99/55 Blood Pressure 128/79 122/76 [Right] O2 Sat by Pulse 98 99 100 Oximetry 02/15/20 09:06 Temperature 97.7 F Pulse Rate 65 Respiratory 19 Rate Blood Pressure Blood Pressure 120/77 [Right] O2 Sat by Pulse 100 Oximetry - Reevaluation(s) Reevaluation #1: After initial evaluation, the patient has requested something to calm him down. Patient will be given Geodon 20. 02/14/20 20:07 Reevaluation #2: Nurse reports the patient does not need Geodon that he calmed down by himself. Geodon will be canceled. 02/14/20 21:10 Reevaluation #3: Patient placed on a 1013. Patient is resting comfortably. I discussed all results and clinical findings with patient. I discussed plan of care with patient. Patient agrees with plan of care. Patient is medically cleared. Patient will remain in the ER as an ER hold. Patient's final disposition will come from our psychiatry team. 02/14/20 23:13 - Consultations Consultation #1: I discussed case with mental health and the mental health metalworking specialist recommends a active 1013. Patient placed on a 1013. 02/14/20 23:13 ED Medical Decision Making - Lab Data Result diagrams: 02/14/20 20:23 02/14/20 20:23 - Medical Decision Making Patient is a 26-year-old male that presents emergency room with complaints of homicidal ideations and hallucinations. Patient is clinical findings are consistent with acute psychosis. And medical noncompliance. Patient been off his medications for couple weeks. Patient had labs done which were essentially unremarkable. Patient is medically cleared. Patient was evaluated by mental health and the mental health digital circuit designer recommended a 1013. Patient was placed on a 1013. Patient is medically cleared. Patient's final disposition will come from our psychiatry, mental health team. - Differential Diagnosis Acute psychosis, hallucinations, noncompliance, homicidal ideations. Critical care attestation.: If time is entered above; I have spent that time in minutes in the direct care of this critically ill patient, excluding procedure time. ED Disposition Is pt being admited?: No Does the pt Need Aspirin: No Time of Disposition: 23:45
[2020-02-14 21:02] LABS: BUN/Creatinine Ratio 20; Blood Urea Nitrogen 20 mg/dL (9-20); Calcium 9.8 mg/dL (8.4-10.2); Hemolysis Index 17
[2020-02-14 21:11] LABS: Hematocrit 44.9 % (35.5-45.6); Hemoglobin 15.1 gm/dl (11.8-15.2); Mean Corpuscular HGB Conc 34 % (32-34); Mean Corpuscular Volume 97 fl (84-94); Platelet Count 313 K/mm3 (140-440); Red Blood Count 4.64 M/mm3 (3.65-5.03); Red Cell Distribution Width 13.7 % (13.2-15.2)
[2020-02-14 21:11] LABS: Bilirubin,Urine NEG (Negative); Blood,Urine NEG (Negative); Color,Urine Yellow (Yellow); Mucus,Urine 3+ /HPF
[2020-02-14 21:15] LABS: Amphetamine Screen,Urine PRESUMPTIVE NEGATIVE; Benzodiazepines Screen,Urine PRESUMPTIVE NEGATIVE; Cannabinoid Screen,Urine PRESUMPTIVE POSITIVE; Cocaine Screen,Urine PRESUMPTIVE NEGATIVE; Methadone Screen,Urine PRESUMPTIVE NEGATIVE; Opiate Screen,Urine PRESUMPTIVE NEGATIVE
[2020-02-15 09:08] VITALS: BP 120/77
--- NOTE | 2020-02-15 10:59 | Consultation ---
History of Present Illness - Reason for Consult Consult date: 02/15/20 Reason for consult: requesting to speak with psysch - History of Present Psychiatric Illness The patient's medical record was reviewed and the patient's progress was discussed with the nursing staff. I attempted to interview the patient today. He was lying in bed with his eyes closed. He is rude, verbally aggressive and uncooperative. When calling the patient's name, he replies "I'm sleeping and don't feel like talking." When informing the patient of who I was, and stating to him that I needed information so I would know how to treat him, he replies, "I can't get rest around here, and I keep asking for my own room." He then says "I told yall I need is my meds and I'm good." When asking the patient about hallucinations, he says "that was yesterday." When asking the patient was he SI/HI, he replies, "naw, but you need to leave me alone." He then says, "I don't want your help right now. Please leave. I'm trying to get me some sleep." I went back and spoke to the patient later and advised him that he would be going home and that I had written his scripts. He says, "that's good and I have nothing else to talk to you about." PAST PSYCHIATRIC HISTORY Unable to obtain PAST MEDICAL HISTORY: None reported Family Psychiatric History: None reported or documented SOCIAL HISTORY Unable to obtain REVIEW OF SYSTEMS Unable to obtain MENTAL STATUS EXAMINATION Unable to assess Assessment Bipolar Disorder Plan D/c 1013 Depakote 250mg po BID Risperidone 0.5mg po BID Sitter: Defer to primary Medical: Per primary Disposition: Do not Recommend acute inpatient treatment. The field contact person is to implement safety plan. The patient is to follow up with outpatient psych in 7 to 14 days upon discharge The field contact person is to give the patient resources for outpatient psych services and cognitive behavior therapy Will sign off. Thank you for this consult. Medications and Allergies Allergies Allergy/AdvReac Type Severity Reaction Status Date / Time No Known Allergies Allergy Verified 04/11/18 21:03 Home Medications Medication Instructions Recorded Confirmed Last Taken Type ARIPiprazole [Abilify TAB] 5 mg PO QHS #30 tablet 07/19/18 02/15/20 Unknown Rx FLUoxetine [PROzac] 10 mg PO QAM #30 tablet 07/19/18 02/15/20 Unknown Rx Divalproex ER [DepaKOTE ER] 500 mg PO BID 08/25/19 02/15/20 Unknown History risperiDONE [RisperDAL] 0.5 mg PO DAILY 08/25/19 02/15/[address] [DepaKOTE DR] 250 mg PO BID #60 tablet 02/15/20 Unknown Rx risperiDONE [RisperDAL] 0.5 mg PO BID #60 tablet 02/15/20 Unknown Rx Mental Status Exam - Vital signs Last Vital Signs Temp 97.7 F 02/15/20 09:06 Pulse 65 02/15/20 09:06 Resp 19 02/15/20 09:06 BP 120/77 02/15/20 09:06 Pulse Ox 100 02/15/20 09:06 Results Result Diagrams: 02/14/20 20:23 02/14/20 20:23 Abnormal lab results 02/14/20 02/14/20 02/14/20 Range/Units 20:10 20:23 20:23 MCV 97 H (84-94) fl MCH 33 H (28-32) pg Sodium 136 L (137-145) mmol/L Chloride 97.1 L (98-107) mmol/L Carbon Dioxide 17 L (22-30) mmol/L Glucose 63 L (75-100) mg/dL Ur Specific [place] 1.034 H (1.003-1.030) Salicylates (2.8-20.0) mg/dL Acetaminophen (10.0-30.0) ug/mL 02/14/20 02/14/20 Range/Units 20:23 20:23 MCV (84-94) fl MCH (28-32) pg Sodium (137-145) mmol/L Chloride (98-107) mmol/L Carbon Dioxide (22-30) mmol/L Glucose (75-100) mg/dL Ur Specific [place] (1.003-1.030) Salicylates < 0.3 L (2.8-20.0) mg/dL Acetaminophen 5.0 L (10.0-30.0) ug/mL All other labs normal.
[2020-02-15] MEDS ORDERED: DIVALPROEX DR 250 MG TAB PO SCH (12:00)
[2020-02-15] MEDS ORDERED: risperiDONE 0.25 MG TAB PO SCH (12:00)
[2020-02-15] MEDS ORDERED: traZODone 50 MG TAB PO SCH (22:00)
== END 2020-02-15 13:37 | disposition home or self-care (01) ==
LOC: ED 15:26
DX: F20.89 Other schizophrenia (principal); F23 Brief psychotic disorder; Z79.899 Other long term (current) drug therapy
CPT/HCPCS: 36415; 80048; 80307; 80320; 81001; 85025; G0480

== ENCOUNTER 2020-06-27 14:53 | Emergency (ER) | payer SELFPAY ==
[2020-06-27 15:01] VITALS: BP 114/58
[2020-06-27] MEDS ORDERED: ONDANSETRON 4 MG ODT TAB PO ONE (15:16)
[2020-06-27] MEDS ORDERED: ALUM-MAG HYDROXIDE-SIMETHICONE 200-200-20MG/5ML ORAL LIQD 30 ML PO ONE (15:16)
[2020-06-27] MEDS ORDERED: FAMOTIDINE 20 MG TAB PO ONE (15:16)
[2020-06-27 16:15] LABS: Basophils % (Auto) 0.5 % (0.0-1.8); Eosinophils # (Auto) 0.1 K/mm3 (0.0-0.4); Eosinophils % (Auto) 1.3 % (0.0-4.3); Hematocrit 38.9 % (35.5-45.6); Hemoglobin 13.1 gm/dl (11.8-15.2); Lymphocytes # (Auto) 1.9 K/mm3 (1.2-5.4); Lymphocytes % (Auto) 29.7 % (13.4-35.0); Mean Corpuscular HGB Conc 34 % (32-34); Mean Corpuscular Volume 97 fl (84-94); Monocytes # (Auto) 0.6 K/mm3 (0.0-0.8); Monocytes % (Auto) 9.5 % (0.0-7.3); Platelet Count 306 K/mm3 (140-440); Red Blood Count 4.04 M/mm3 (3.65-5.03); Red Cell Distribution Width 13.6 % (13.2-15.2)
[2020-06-27 16:35] LABS: Alanine Aminotransferase 14 units/L (7-56); Albumin 3.9 g/dL (3.9-5); BUN/Creatinine Ratio 10; Blood Urea Nitrogen 9 mg/dL (9-20); Hemolysis Index 10
--- NOTE | 2020-06-27 16:37 | Emergency Department Report ---
ED Abdominal Pain HPI - General Chief Complaint: Abdominal Pain Stated Complaint: ABD PAIN X 1 MONTH Time Seen by Provider: 06/27/20 15:15 Source: patient, EMS Mode of arrival: Ambulatory Limitations: No Limitations - History of Present Illness Initial Comments: pt is a 24 yo male who presents to the ED with c/o upper abd pain for a month. he states he has approximately one episode of vomiting a day and occasionally feels nauseous. he denies any diarrhea, fever, urinary symptoms, hematochezia, hematemesis, melena. he states he went to [facility] ED a couple weeks ago and was given medications which he states helped but he does not know the medications. pmhx schizophrenia and bipolar. no allergies to meds. he denies HI or SI. - Related Data Home Medications Medication Instructions Recorded Confirmed Last Taken Divalproex ER [DepaKOTE ER] 500 mg PO BID 08/25/19 02/15/20 Unknown risperiDONE [RisperDAL] 0.5 mg PO DAILY 08/25/19 02/15/20 Unknown Previous Rx's Medication Instructions Recorded Last Taken Type ARIPiprazole [Abilify TAB] 5 mg PO QHS #30 tablet 07/19/18 Unknown Rx FLUoxetine [PROzac] 10 mg PO QAM #30 tablet 07/19/[address] [DepaKOTE DR] 250 mg PO BID #60 tablet 02/15/20 Unknown Rx risperiDONE [RisperDAL] 0.5 mg PO BID #60 tablet 02/15/20 Unknown Rx Famotidine [Pepcid] 40 mg PO QHS #30 tablet 06/27/20 Unknown Rx Sucralfate [Carafate] 1 gm PO ACHS 7 Days #21 tablet 06/27/20 Unknown Rx Allergies Allergy/AdvReac Type Severity Reaction Status Date / Time No Known Allergies Allergy Verified 06/27/20 14:58 ED Review of Systems ROS: Stated complaint: ABD PAIN X 1 MONTH Other details as noted in HPI Comment: All other systems reviewed and negative ED Past Medical Hx - Past Medical History Hx Psychiatric Treatment: Yes (Schizo and bipolar) Additional medical history: Schizophrenia, bi polar. "heart probs" - Social History Smoking Status: Current Every Day Smoker Substance Use Type: None - Medications Home Medications: Home Medications Medication Instructions Recorded Confirmed Last Taken Type ARIPiprazole [Abilify TAB] 5 mg PO QHS #30 tablet 07/19/18 02/15/20 Unknown Rx FLUoxetine [PROzac] 10 mg PO QAM #30 tablet 07/19/18 02/15/20 Unknown Rx Divalproex ER [DepaKOTE ER] 500 mg PO BID 08/25/19 02/15/20 Unknown History risperiDONE [RisperDAL] 0.5 mg PO DAILY 08/25/19 02/15/[address] [DepaKOTE DR] 250 mg PO BID #60 tablet 02/15/20 Unknown Rx risperiDONE [RisperDAL] 0.5 mg PO BID #60 tablet 02/15/20 Unknown Rx Famotidine [Pepcid] 40 mg PO QHS #30 tablet 06/27/20 Unknown Rx Sucralfate [Carafate] 1 gm PO ACHS 7 Days #21 tablet 06/27/20 Unknown Rx ED Physical Exam - General Limitations: No Limitations General appearance: alert, in no apparent distress - Head Head exam: Present: atraumatic, normocephalic - Eye Eye exam: Present: normal appearance - ENT ENT exam: Present: mucous membranes moist - Respiratory Respiratory exam: Present: normal lung sounds bilaterally. Absent: respiratory distress, wheezes, rales, rhonchi, stridor, chest wall tenderness, accessory muscle use, decreased breath sounds, prolonged expiratory - Cardiovascular Cardiovascular Exam: Present: regular rate, normal rhythm, normal heart sounds. Absent: systolic murmur, diastolic murmur, rubs, gallop - GI/Abdominal GI/Abdominal exam: Present: soft, normal bowel sounds. Absent: distended, tenderness, guarding, rebound, rigid - Neurological Exam Neurological exam: Present: alert, oriented X3 - Psychiatric Psychiatric exam: Present: normal affect, normal mood - Skin Skin exam: Present: warm, dry, intact ED Course Vital Signs 06/27/20 14:58 Temperature 98.7 F Pulse Rate 64 Respiratory 20 Rate Blood Pressure 114/58 O2 Sat by Pulse 97 Oximetry ED Medical Decision Making - Lab Data Result diagrams: 06/27/20 15:29 06/27/20 15:29 Lab Results 06/27/20 06/27/20 Range/Units 15:29 15:29 WBC 6.4 (4.5-11.0) K/mm3 RBC 4.04 (3.65-5.03) M/mm3 Hgb 13.1 (11.8-15.2) gm/dl Hct 38.9 (35.5-45.6) % MCV 97 H (84-94) fl MCH 32 (28-32) pg MCHC 34 (32-34) % RDW 13.6 (13.2-15.2) % Plt Count 306 (140-440) K/mm3 Lymph % (Auto) 29.7 (13.4-35.0) % [place]inger % (Auto) 9.5 H (0.0-7.3) % Eos % (Auto) 1.3 (0.0-4.3) % Baso % (Auto) 0.5 (0.0-1.8) % Lymph # (Auto) 1.9 (1.2-5.4) K/mm3 Grainger # (Auto) 0.6 (0.0-0.8) K/mm3 Eos # (Auto) 0.1 (0.0-0.4) K/mm3 Baso # (Auto) 0.0 (0.0-0.1) K/mm3 Seg Neutrophils % 59.0 (40.0-70.0) % Seg Neutrophils # 3.8 (1.8-7.7) K/mm3 Sodium 140 (137-145) mmol/L Potassium 4.2 (3.6-5.0) mmol/L Chloride 105.5 (98-107) mmol/L Carbon Dioxide 27 (22-30) mmol/L Anion Gap 12 mmol/L BUN 9 (9-20) mg/dL Creatinine 0.9 (0.8-1.3) mg/dL Estimated GFR > 60 ml/min BUN/Creatinine Ratio 10 % Glucose 103 H (75-100) mg/dL Calcium 9.0 (8.4-10.2) mg/dL Total Bilirubin 0.20 (0.1-1.2) mg/dL AST 18 (5-40) units/L ALT 14 (7-56) units/L Alkaline Phosphatase 58 (35-129) units/L Total Protein 6.1 L (6.3-8.2) g/dL Albumin 3.9 (3.9-5) g/dL Albumin/Globulin Ratio 1.8 % Lipase 19 (13-60) units/L - Medical Decision Making pt is a 24 yo male who presents to the ED with c/o upper abd pain for a month. he states he has approximately one episode of vomiting a day and occasionally feels nauseous. he denies any diarrhea, fever, urinary symptoms, hematochezia, hematemesis, melena. he states he went to [facility] ED a couple weeks ago and was given medications which he states helped but he does not know the medications. pmhx schizophrenia and bipolar. no allergies to meds. he denies HI or SI. Vitals are normal. No abdominal tenderness on exam. Labs are normal. given PO meds in the ED and symptoms improved and tolerated PO intake without dificulty. do not suspect acute emergent intraabdominal pathology at this time, no abd ttp, no leukocytosis, tolerating PO intake. given prescription for pepcid and carafate. advised pt Please take medication as prescribed. Please follow the diet for acid reflux/ulcers. follow up with a primary care doctor. return to the emergency room for any new or worsening symptoms. - Differential Diagnosis PUD, GERD, gastritis, gas pain, constipation Critical care attestation.: If time is entered above; I have spent that time in minutes in the direct care of this critically ill patient, excluding procedure time. ED Disposition Clinical Impression: Abdominal pain Qualifiers: Abdominal location: upper abdomen, unspecified Qualified Code(s): R10.10 - Upper abdominal pain, unspecified Disposition: DC-01 TO HOME OR SELFCARE Is pt being admited?: No Does the pt Need Aspirin: No Condition: Stable Instructions: Peptic Ulcer, [id number], Food Choices for Gastroesophageal Reflux Disease, Adult, Abdominal Pain, Adult, [id number] Additional Instructions: Please take medication as prescribed. Please follow the diet for acid reflux/ulcers. follow up with a primary care doctor. return to the emergency room for any new or worsening symptoms. Prescriptions: Famotidine [Pepcid] 40 mg PO QHS #30 tablet Sucralfate [Carafate] 1 gm PO ACHS 7 Days #21 tablet Referrals: [facility] [Provider Group] - 2-3 Days BRAD WOMACK MD [Staff Physician] - 2-3 Days Forms: Work/School Release Form(ED) Time of Disposition: 17:15 Print Language: FRENCH
== END 2020-06-27 17:40 | disposition home or self-care (01) ==
LOC: ED 14:53
DX: R10.10 Upper abdominal pain, unspecified (principal); F25.0 Schizoaffective disorder, bipolar type; F17.200 Nicotine dependence, unspecified, uncomplicated; Z79.899 Other long term (current) drug therapy
CPT/HCPCS: 36415; 80053; 83690; 85025; Q0162

== ENCOUNTER 2020-07-04 21:07 | Emergency (ER) | payer SELFPAY ==
[2020-07-04 22:06] VITALS: BP 129/70
[2020-07-04] MEDS ORDERED: DIPHtheria,PERTUSSIS(ACELL),TETANUS VACCINE/PF 0.5 ML VIAL IM ONE (22:36)
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
[2020-07-04] MEDS ORDERED: ACETAMINOPHEN 325 MG TAB PO ONE (22:43)
== END 2020-07-04 22:52 | disposition home or self-care (01) ==
LOC: ED 21:07
DX: S01.111A Laceration without foreign body of right eyelid and periocular area, initial encounter (principal); F25.0 Schizoaffective disorder, bipolar type; F17.200 Nicotine dependence, unspecified, uncomplicated; Z79.899 Other long term (current) drug therapy; Y08.89XA Assault by other specified means, initial encounter; Y93.89 Activity, other specified; Y92.89 Other specified places as the place of occurrence of the external cause; Y99.8 Other external cause status
CPT/HCPCS: 90471; 90715; 99283